=== PATIENT | male | born 1940 | race Caucasian/White ===

== ENCOUNTER 2016-10-08 16:52 | Inpatient (IN) | payer MEDICARE ==
[~2016-10-08] VITALS: Ht 167.6 cm; Wt 114.3 kg
[2016-10-08 19:22] LABS: Mean Corpuscular Volume 89 fL (81-100)
[2016-10-08 19:23] LABS: Platelet Count 218 bil/L (150-400)
[2016-10-08 19:24] LABS: BASOPHILS % (AUTO) 0 % (0-3); EOSINOPHILS % (AUTO) 3 % (0-5); MONOCYTES % (AUTO) 7 % (4-12); NEUTROPHILS % (AUTO) 67 % (40-74)
[2016-10-08 19:35] LABS: TROPONIN T 0.01 ug/L (0.0-0.011)
[2016-10-08 19:46] LABS: Magnesium 2.2 mg/dL (1.6-2.6)
[2016-10-08 19:48] LABS: INR 0.94 ratio
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
[2016-10-08] MEDS ORDERED: Piperacillin-Tazo 3.375 Gm Inj 3.375 GM in Dextrose 5% Minibag Plus 50 ML IV ONE (20:20)
[2016-10-08] MEDS ORDERED: Albuterol-Ipratropium 3 mL Inhalation Solution NEB ONE (20:25)
[2016-10-08 23:19] VITALS: BP 145/71; PULSE 77; RESP 18; O2SAT 98
[2016-10-09] MEDS ORDERED: Piperacillin-Tazo 3.375 Gm Inj 3.375 GM in Dextrose 5% Minibag Plus 50 ML IV ONE (00:30)
[2016-10-09] MEDS ORDERED: MethylprednisoLONE Sodium Succinate 62.5 mg/mL 2 mL Inj IVPUSH ONE (00:30)
[2016-10-09] MEDS ORDERED: Albuterol-Ipratropium 3 mL Inhalation Solution NEB ONE (00:30)
[2016-10-09] MEDS ORDERED: BENZ100C8 PO (00:40)
[2016-10-09] MEDS ORDERED: VITA15LO PO (00:40)
[2016-10-09] MEDS ORDERED: LEVO500T79 PO (00:40)
[2016-10-09] MEDS ORDERED: GINK120C PO (00:40)
[2016-10-09] MEDS ORDERED: SAW160CA2 PO (00:40)
[2016-10-09] MEDS ORDERED: COD1CAPS16 PO (00:40)
[2016-10-09] MEDS ORDERED: NAPR250T PO (00:41)
[2016-10-09] MEDS ORDERED: [UNRECOGNIZED DRUG - OTHER] PO (00:42)
[2016-10-09] MEDS ORDERED: ASCO100T11 PO (00:44)
[2016-10-09] MEDS ORDERED: ZINC25LO PO (00:44)
[2016-10-09 01:18] VITALS: PULSE 77; RESP 16; O2SAT 97
[2016-10-09] MEDS ORDERED: Alum-Mag Hydrox-Simeth 30 mL Suspension PO PRN ×2 (01:55→02:00)
[2016-10-09] MEDS ORDERED: Ondansetron 2 mg/mL 2 mL Inj IVPUSH PRN (01:55)
[2016-10-09] MEDS ORDERED: Polyethylene Glycol (PEG) 17 Gm Powder PO PRN (02:00)
[2016-10-09] MEDS ORDERED: Furosemide 10 mg/mL 2 mL Inj IVPUSH ONE (02:00)
[2016-10-09] MEDS ORDERED: Albuterol-Ipratropium 3 mL Inhalation Solution NEB PRN (02:00)
[2016-10-09 02:11] VITALS: BP 142/84; PULSE 75; RESP 26; O2SAT 94
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
[2016-10-09 02:30] LABS: APPEARANCE,URINE CLEAR (CLEAR,HAZY); COLOR,URINE STRAW (YELLOW); OCCULT BLOOD,URINE NEGATIVE (NEGATIVE); UROBILINOGEN,URINE NORMAL (NORMAL)
[2016-10-09 03:23] LABS: BASOPHILS % (AUTO) 0.5 % (0-3); EOSINOPHILS % (AUTO) 2.2 % (0-5); MONOCYTES % (AUTO) 3.9 % (4-12); Mean Corpuscular Hemoglobin 30.1 pg (27.0-35.0); Mean Corpuscular Volume 89.6 fL (81-100); Platelet Count 188 bil/L (150-400)
[2016-10-09 03:44] LABS: Magnesium 2.3 mg/dL (1.6-2.6); Phosphorus 2.8 mg/dL (2.5-4.9)
--- NOTE | 2016-10-09 05:25 | NUR ---
AMA PT was resting fine since this RN had completed his admit. At around 0505 Dr Fraser went in to talk with the pt and called me in to room urgently. PT was found with all of his clothes on and was stating "I can not be bound to this bed. I cant do it. I cant do it. I am leaving. Better now than later." PT apparently was referring to his SCD's. This RN had been in the room about 1 1/2 hours earlier and pt made no mention of disliking them. He did mention that he felt "tied to the bed," but I thought he was referencing the call light because I had reminded him again to call for SBA to BR as he was being admitted for syncopal event. facilities maintenance supervisor, multiple MD's and this RN tried to convince pt to stay,but he would not. He clearly stated his risks if he were to leave and was of sound mind. RN asked if he needed assistance with a ride, but pt stated he would call his friend. PT left AMA at 0515. AMA form signed.
[2016-10-09 05:29] VITALS: PULSE 74
[2016-10-09] MEDS ORDERED: cefTRIAXone Inj 2,000 MG in Dextrose 5% Minibag Plus 50 ML IV SCH (08:30)
[2016-10-09] MEDS ORDERED: Azithromycin Inj 500 MG in Dextrose 5% w/Vial Mate 250 ML IV SCH (08:30)
--- NOTE | 2016-10-09 09:39 | DRSVH ---
PROCEDURE: CT ANGIO CHEST PULMONARY EMBOLISM ([id number]) INDICATIONS: dyspnea, near syncope, recent brain surgery TECHNIQUE: After the administration of intravenous contrast, 2 mm thick sections acquired from the pulmonary api martita to the posterior costophrenic angles. 3-dimensional maximum intensity projection (MIP) coronal a nd sagittal reformats were then acquired through the thorax. For radiation dose reduction, the follo wing was used: automated exposure control, adjustment of mA and/or kV according to patient size. COMPARISON: None. FINDINGS: Image quality: Excellent. Pulmonary arteries: Pulmonary arteries are normal in size, and demonstrate no intraluminal filling d efects to suggest central pulmonary embolism. Lungs and pleura: There is dependent bibasilar scattered atelectasis and/or cystic change or bleb for mation. No acute consolidation. No pleural effusion or pneumothorax. Mediastinum: Heart size is normal, without pericardial effusion. No mediastinal or hilar adenopathy . Thoracic aorta is normal in caliber and enhancement. Esophagus is normal in caliber, without hiat al hernia. Bones and chest wall: No suspicious bony lesions. Ribs and thoracic spine appear intact throughout. Thyroid gland unremarkable. No axillary or supraclavicular adenopathy. Abdomen: Visualized upper abdominal solid organs appear normal in the early arterial phase of enhanc ement. Calcification seen in the right posterior hepatic capsule IMPRESSION: No evidence of pulmonary embolism. Scattered bibasilar atelectasis. Dictated by: Jossue Garrett M.D. on 10/09/2016 at 9:33 Approved by: Jossue Garrett M.D. on 10/09/2016 at 9:38
--- NOTE | 2016-10-09 10:11 | DRSVH ---
PROCEDURE: X-RAY CHEST ONE VIEW, PORTABLE ([id number]) INDICATIONS: dyspnea TECHNIQUE: One view of the chest was acquired. COMPARISON: [facility], CR, XR CHEST 1VW (PORTABLE), 10/08/2016, 18:18. FINDINGS: Surgical changes and devices: None. Lungs and pleura: No pleural effusions or pneumothorax. Lungs are clear. Mediastinum: Mediastinal contours appear normal. Heart size is normal. Bones and chest wall: No suspicious bony lesions. Overlying soft tissues appear unremarkable. IMPRESSION: No acute disease Dictated by: Jossue Garrett M.D. on 10/09/2016 at 10:10 Approved by: Jossue Garrett M.D. on 10/09/2016 at 10:10
== END 2016-10-09 05:36 | disposition left against medical advice (07) | DRG 195 ==
LOC: SED 16:52 → PCC 10-09 01:30 → OBSVTOIN 10-09 01:30 → PCC 10-09 02:00
PROVIDERS: ADMIT Internal Medicine; ATTEND Internal Medicine
DX: J15.9 Unspecified bacterial pneumonia (principal); J44.9 Chronic obstructive pulmonary disease, unspecified; I10 Essential (primary) hypertension; R55 Syncope and collapse; R06.00 Dyspnea, unspecified